=== PATIENT | female | born 1985 | race African-American/Black ===

== ENCOUNTER 2022-09-19 08:25 | Emergency (ER) | payer OTHER, SELFPAY ==
[2022-09-19 08:32] VITALS: BP 146/81; PULSE 76; O2SAT 97
[2022-09-19 08:33] VITALS: BP 146/81; PULSE 73; RESP 16; TEMP 36.5; O2SAT 98; BMI 32.5
--- NOTE | 2022-09-19 08:38 | DI.RAD.S_ITS ---
PROCEDURE: XR CHEST 1V INDICATIONS: chest pain TECHNIQUE: One view of the chest was acquired. COMPARISON: None. FINDINGS: Surgical changes and devices: None. Lungs and pleura: Lungs are clear. No pleural effusions or pneumothorax. Mediastinum: Mediastinal contours appear normal. Heart size is normal. Bones and chest wall: No suspicious bony lesions. Overlying soft tissues appear unremarkable. IMPRESSION: No evidence acute pulmonary process. Dictated by: Micheal Rosa M.D. on 09/19/2022 at 9:05 Approved by: Micheal Rosa M.D. on 09/19/2022 at 9:05
--- NOTE | 2022-09-19 08:40 | ED_ITS ---
HPI - Chest Pain General Chief Complaint: Chest Pain Stated Complaint: chest pain T-4 Time Seen by Provider: 09/19/22 08:35 Source: patient Mode of arrival: Ambulatory Limitations: no limitations History of Present Illness HPI narrative: 37-year-old female nonsmoker with noncontributory medical history presents to the emergency department today with a chief complaint of left anterior chest pain and pressure that has been present for the past 4 days. She states it started when she was resting and preparing for sleep a few days ago and has largely been persistent ever since. At its worst it was a 7/10 in his currently a 5/10. She states it feels a bit squeezing. She denies any obvious provocation, palliation or radiation of this discomfort. She denies associated symptoms such as dizziness, weakness, lightheadedness or shortness of breath. She denies any exertional component and states she has had no exercise intolerance or unexplained fatigue. She denies recent travel, history blood clot or cancer. She denies any numbness, tingling, weakness or swelling of 1 leg or the other. She denies any runny nose, sore throat or cough. Related Data Previous Rx's Medication Instructions Recorded ketorolac 10 mg tablet 10 mg PO Q6H PRN pain #14 tabs 09/19/22 Allergies Allergy/AdvReac Type Severity Reaction Status Date / Time No Known Drug Allergies Allergy Verified 09/19/22 08:37 Review of Systems Review of Systems Narrative: GENERAL: Denies chills, fatigue, malaise, fever, sweats. HEENT: Denies sinus pain, ear pain, sore throat, difficulty swallowing, dizziness. RESPIRATORY: Denies dyspnea, cough, wheezing, hemoptysis, sputum. CARDIOVASCULAR: See HPI GASTROINTESTINAL: Denies nausea, vomiting, abdominal pain, diarrhea, constipation, melena. : Denies dysuria, frequency, incontinence, hematuria, urinary retention. MUSCULOSKELETAL: denies weakness, joint pain, or bony pain SKIN: Denies rash, skin lesions, or other NEUROLOGIC: Denies weakness, headache, numbness, change in speech, confusion, seizures, incoordination. PSYCHIATRIC: No concerning psychosocial issues. 12 point review of systems is negative except for those stated above Patient History Social History Smoking Status: Never smoker Smoking Status: Never smoker Substance Use Type: does not use Exam Narrative Exam Narrative: GENERAL: [37] year old patient appears stated age. Well-developed patient, in no obvious distress, resting comfortably HEAD: Atraumatic. Normocephalic. EYES: Pupils equal round and reactive. Extraocular motions intact. No scleral icterus. No injection or drainage. ENT: Nose without bleeding, purulent drainage. Throat without erythema, tonsillar hypertrophy or exudate. Airway patent. NECK: Trachea midline. Non tender CARDIOVASCULAR: Regular rate and rhythm without murmurs, gallops, or rubs. No reproducible pain on palpation RESPIRATORY: Clear to auscultation. Breath sounds equal bilaterally. No wheezes, rales, or rhonchi. GASTROINTESTINAL: Abdomen soft, non-tender, nondistended. EXTREMITIES: No edema or joint tenderness. BACK: Nontender without deformity or crepitance. No flank tenderness. NEURO: AOx3. SKIN: No rash or erythema of visible areas Initial Vital Signs Initial Vital Signs: Vital Signs Pulse Rate 76 09/19/22 08:32 Blood Pressure 146/81 H 09/19/22 08:32 Pulse Oximetry 97 09/19/22 08:32 Scores HEART Score Heart Score history: Slightly Suspicious Heart Score EKG: Normal Heart Score Age: < 45 years old Heart Score risk factors: No known risk factors Heart Score troponin: < or = to normal limit Heart Score Total: 0 PERC Score Age greater than or equal to 50 years: No Heart rate greater than or equal to 100 bpm: No Room Air O2 Sat less than 95%: No Unilateral leg swelling: No Recent trauma or surgery: No Hemoptysis: No Prior PE or DVT: No Hormone Use: Yes Total PERC Score: 1 Wells' Criteria for PE Clinical signs and symptoms of DVT: No PE is #1 Dx or equally likely: No Heart rate > 100: No Immobilization at least 3 days or surg in previous 4 weeks: No History of PE or DVT: No Hemoptysis: No Malignancy w/Treatment within 6 months or palliative: No Wells' PE Score total: 0 Course Orders Ordered: ED Orders 09/19/22 08:38 XR chest 1V Stat EKG-12 Lead Stat 09/19/22 08:40 CRP [C-Reactive Protein Quant] Stat Complete Blood Count AUTO DIFF Stat Comprehensive Metabolic Panel Stat D Dimer Stat ESR [Erythrocyte Sedimentation Rate] Stat Lipase Stat NT-proBNP (BNP-Adult 18+) Stat Procalcitonin Stat Prothrombin Time INR Stat Troponin & CK Cardiac Panel Stat Sodium Chloride (Normal Saline 0.9%) 1,000 mls @ 150 mls/hr IV CONT WILL Discontinued Medications Aspirin (Aspirin 81 Mg Chew Tab) 324 mg PO NOW ONE Stop: 09/19/22 08:39 Last Admin: 09/19/22 09:19 Dose: 324 mg Documented By: AT Ketorolac Tromethamine (Ketorolac 30 Mg/Ml Vial) 15 mg IV NOW ONE Stop: 09/19/22 09:18 Last Admin: 09/19/22 09:22 Dose: 15 mg Documented By: AT Vital Signs Vital signs: Vital Signs - 8 hr 09/19/22 08:33 09/19/22 08:32 09/19/22 08:32 Temperature 97.7 F Pulse Rate 73 76 Respiratory Rate 16 Blood Pressure 146/81 H 146/81 H Pulse Oximetry 98 97 Oxygen Delivery Method Room Air 09/19/22 09:00 09/19/22 09:00 09/19/22 09:30 Temperature Pulse Rate 60 53 L Respiratory Rate 13 16 Blood Pressure 149/81 H Pulse Oximetry 99 99 Oxygen Delivery Method Room Air Room Air 09/19/22 09:31 09/19/22 09:31 Temperature Pulse Rate 57 L Respiratory Rate 22 Blood Pressure 124/70 Pulse Oximetry 99 Oxygen Delivery Method Room Air MDM - Chest Pain Lab Data 09/19/22 08:40 09/19/22 08:40 Labs: Lab Results 09/19/22 09/19/22 09/19/22 Range/Units 08:40 08:40 08:40 WBC 4.8 (4.5-11.0) X10^3/uL RBC 4.62 (4.0-5.2) X10^6/uL Hgb 13.1 (12.0-16.0) g/dL Hct 39.8 (36-46) % MCV 86.1 (80-100) fL MCH 28.4 (26-34) PG MCHC 33.0 (30-36) % RDW 14.8 (11.6-14.8) % Plt Count 206 (150-400) X10^3/uL Neut % (Auto) 45.7 L (50-75) % Lymph % (Auto) 42.1 H (25-40) % Iron % (Auto) 9.6 (3-14) % Eos % (Auto) 1.4 L (2-4) % Baso % (Auto) 1.2 (0-2) % Neut # (Auto) 2200 (8393-1879) /uL Lymph # (Auto) 2000 (1725-4736) /uL Iron # (Auto) 500 (0-900) /uL Eos # (Auto) 100 (0-450) /uL Baso # (Auto) 100 (0-100) /uL ESR 31 H (0-20) MM/HR PT 13.1 H (10.1-12.7) SECONDS INR 1.1 (0.9-1.3) D-Dimer < 215 (<500) ng/ml Sodium 139 (137-145) mmol/L Potassium 3.8 (3.4-5.1) mmol/L Chloride 102 (98-107) mmol/L Carbon Dioxide 28 (22-32) mmol/L BUN 12 (7-17) mg/dL Creatinine 0.75 (0.52-1.04) mg/dL Estimated GFR > 60 (>60) mL/min BUN/Creatinine Ratio 16.0 (6-22) Glucose 93 (70-100) mg/dL Calcium 9.2 (8.4-10.2) mg/dL Total Bilirubin 0.4 (0.2-1.3) mg/dL AST 22 (14-36) IU/L ALT 16 (<35) IU/L Alkaline Phosphatase 92 (38-126) U/L Total Creatine Kinase 100 (30-135) U/L CK-MB (CK-2) TNP CK-MB (CK-2) Rel Index TNP Troponin I < 0.012 (0.01-0.034) ng/mL C-Reactive Protein 0.9 (<1.0) mg/dL NT-Pro-B Natriuret Pep (<125) pg/mL Total Protein 8.9 H (6.3-8.2) g/dL Albumin 4.3 (3.5-5.0) g/dL Globulin 4.6 H (1.7-4.1) g/dL Albumin/Globulin Ratio 0.9 L (1.0-2.8) Lipase 118 (23-300) U/L Procalcitonin < 0.03 (<0.5) ng/mL 09/19/22 Range/Units 08:40 WBC (4.5-11.0) X10^3/uL RBC (4.0-5.2) X10^6/uL Hgb (12.0-16.0) g/dL Hct (36-46) % MCV (80-100) fL MCH (26-34) PG MCHC (30-36) % RDW (11.6-14.8) % Plt Count (150-400) X10^3/uL Neut % (Auto) (50-75) % Lymph % (Auto) (25-40) % Iron % (Auto) (3-14) % Eos % (Auto) (2-4) % Baso % (Auto) (0-2) % Neut # (Auto) (2593-7051) /uL Lymph # (Auto) (5597-1379) /uL Iron # (Auto) (0-900) /uL Eos # (Auto) (0-450) /uL Baso # (Auto) (0-100) /uL ESR (0-20) MM/HR PT (10.1-12.7) SECONDS INR (0.9-1.3) D-Dimer (<500) ng/ml Sodium (137-145) mmol/L Potassium (3.4-5.1) mmol/L Chloride (98-107) mmol/L Carbon Dioxide (22-32) mmol/L BUN (7-17) mg/dL Creatinine (0.52-1.04) mg/dL Estimated GFR (>60) mL/min BUN/Creatinine Ratio (6-22) Glucose (70-100) mg/dL Calcium (8.4-10.2) mg/dL Total Bilirubin (0.2-1.3) mg/dL AST (14-36) IU/L ALT (<35) IU/L Alkaline Phosphatase (38-126) U/L Total Creatine Kinase (30-135) U/L CK-MB (CK-2) CK-MB (CK-2) Rel Index Troponin I (0.01-0.034) ng/mL C-Reactive Protein (<1.0) mg/dL NT-Pro-B Natriuret Pep 19 (<125) pg/mL Total Protein (6.3-8.2) g/dL Albumin (3.5-5.0) g/dL Globulin (1.7-4.1) g/dL Albumin/Globulin Ratio (1.0-2.8) Lipase (23-300) U/L Procalcitonin (<0.5) ng/mL MDM Narrative Medical decision making narrative: CC: 37-year-old female with left-sided chest pain Complicating co-morbidities: control Data collected from: Patient Medical records reviewed: Prior notes reviewed in our EMR Differential considered, but not limited to: Cardiac ischemia versus pulmonary embolism versus pericarditis versus pneumonia versus other Exam documented above, pertinent findings include: Heart rate regular, lungs clear, no increased work of breathing Lab Test results independently reviewed as above. Pertinent findings: Independently reviewed EKG as above Imaging studies independently reviewed: CXR without acute findings, no pneumonia or PTX Scores Used: HEART, Wells, PERC Treatments: ASA, Toradol Re-evaluations: Patient has significant if not complete resolution of symptoms with above-stated therapies Discussion: 37-year-old female with left-sided chest pain for the past few days has reassuring history and physical exam. Her heart score is low, she has no exertional symptoms. Troponin is negative and EKGs nonischemic. Pulmonary embolism considered but thought to be low risk based on Wells and PERC score. D-dimer is ordered and well below the cutoff, no CT angiogram indicated. Additionally, there is no evidence of pneumonia or pneumothorax on imaging. At this time patient is feeling better, has stable vitals, not requiring supplemental oxygen, reassuring workup and no indication for further evaluation at this time. Disposition: see below, along with detailed discharge instructions that have been reviewed with patient as well as indications for ED re-evaluation and additional outpatient follow up Discharge Plan Departure Patient Disposition: Home Clinical Impression: Atypical chest pain Instructions: DI for Atypical Chest Pain Activity Restrictions/Additional Instructions: *You have been diagnosed with [atypical chest pain. As we discussed your history and physical exam are reassuring. Your labs, EKG and chest x-ray have no significant abnormal findings and there is no evidence of heart attack, blood clot, pneumonia or collapsed lung.] *What to do: [x] Prescription for Toradol sent to [facility] in [employer] *Please continue to take your regular medications as directed. Consider the use of over the counter tylenol and motrin for your discomfort *Please follow up with your primary care provider in 2-3 days, call for an appointment. Let them know you were seen in the Emergency Department and that we ask that you be seen in follow up. We will electronically transmit a record of today's note if your PCP is in our system *If you do not have a primary care provider please contact the [facility] Resource line at [phone]. They will ask some questions about your medical history and help get you set up with a doctor in the community. *Return to Emergency Department if you should have any new, worsening or concerning symptoms, such as [fever greater than 101 F, shaking chills, worsening pain, persistent vomiting or other bothersome symptoms] Prescriptions: New ketorolac 10 mg tablet 10 mg PO Q6H PRN (Reason: pain) Qty: 14 0RF Referrals: ProviderRadha [Primary Care Provider] - Stand Alone Forms: Patient Portal/API
[2022-09-19 08:52] LABS: Add Manual Diff / Slide Review NO; Basophils Absolute Auto 100 /uL (0-100); Basophils Percent Auto 1.2 % (0-2); Eosinophils Absolute Auto 100 /uL (0-450); Eosinophils Percent Auto 1.4 % (2-4); Hematocrit 39.8 % (36-46); Hemoglobin 13.1 g/dL (12.0-16.0); Lymphocytes Absolute Auto 2000 /uL (1100-4500); Lymphocytes Percent Auto 42.1 % (25-40); Mean Corpuscular Hemoglobin 28.4 PG (26-34); Mean Corpuscular Volume 86.1 fL (80-100); Monocytes Absolute Auto 500 /uL (0-900); Monocytes Percent Auto 9.6 % (3-14); Neutrophils Absolute Auto 2200 /uL (1500-7000); Neutrophils Percent Auto 45.7 % (50-75); Platelet Count 206 X10^3/uL (150-400); Red Blood Cell Count 4.62 X10^6/uL (4.0-5.2); Red Cell Distribution Width 14.8 % (11.6-14.8); White Blood Cell Count 4.8 X10^3/uL (4.5-11.0)
[2022-09-19 09:00] VITALS: BP 149/81; PULSE 60; RESP 13; O2SAT 99
[2022-09-19 09:03] LABS: INR 1.1 (0.9-1.3); Prothrombin Time 13.1 SECONDS (10.1-12.7)
[2022-09-19 09:05] LABS: Alanine Aminotransferase 16 IU/L (<35); Albumin 4.3 g/dL (3.5-5.0); Albumin Globulin Ratio 0.9 (1.0-2.8); Alkaline Phosphatase 92 U/L (38-126); Aspartate Aminotransferase 22 IU/L (14-36); Bilirubin Total 0.4 mg/dL (0.2-1.3); Blood Urea Nitrogen 12 mg/dL (7-17); C-Reactive Protein Quant 0.9 mg/dL (<1.0); Calcium 9.2 mg/dL (8.4-10.2); Carbon Dioxide 28 mmol/L (22-32); Chloride 102 mmol/L (98-107); Creatine Kinase 100 U/L (30-135); Estimated Glomerular Filt Rate > 60 mL/min (>60); Globulin 4.6 g/dL (1.7-4.1); Glucose 93 mg/dL (70-100); HEMOLYSIS < 15 (0-50); Lipase 118 U/L (23-300); Potassium 3.8 mmol/L (3.4-5.1); Sodium 139 mmol/L (137-145); Total Protein 8.9 g/dL (6.3-8.2)
[2022-09-19 09:06] LABS: D Dimer < 215 ng/ml (<500)
[2022-09-19 09:12] LABS: NT-proBNP (BNP-Adult 18+) 19 pg/mL (<125)
[2022-09-19 09:14] LABS: Troponin I < 0.012 ng/mL (0.01-0.034)
[2022-09-19 09:18] LABS: Erythrocyte Sedimentation Rate 31 MM/HR (0-20)
[2022-09-19 09:19] LABS: Procalcitonin < 0.03 ng/mL (<0.5)
[2022-09-19] MEDS: ASPIRIN 81 MG CHEW TAB 324 MG PO (09:19)
[2022-09-19] MEDS: KETOROLAC 30 MG/ML VIAL 15 MG IV (09:22)
[2022-09-19 09:30] VITALS: PULSE 53; RESP 16; O2SAT 99
[2022-09-19 09:31] VITALS: BP 124/70; PULSE 57; RESP 22; O2SAT 99
[2022-09-19 10:00] VITALS: BP 116/75; PULSE 55; RESP 15; O2SAT 99
== END 2022-09-19 10:26 | disposition home or self-care (01) ==
PROVIDERS: Emergency Provider Emergency Medicine
DX: R07.89 Other chest pain (principal)
CPT/HCPCS: 36415; 71045; 80053; 82550; 83690; 83880; 84145; 84484; 85025; 85379; 85610; 85651; 86140; 93005; 96374; 99284; J1885